=== PATIENT | male | born 1985 | race Caucasian/White ===

== ENCOUNTER 2016-07-03 08:21 | Emergency (ER) | payer OTHER ==
[2016-07-03] MEDS ORDERED: METHOCARBAMOL 1,000 MG/10 ML VIAL (J2800) As Ordered ONE (08:54)
[2016-07-03] MEDS ORDERED: KETOROLAC 30 MG/ML VIAL (J1885) As Ordered ONE (08:54)
--- NOTE | 2016-07-03 09:56 | REP ---
LUMBOSACRAL SPINE: Five views of the lumbosacral spine are performed. There is no compression fracture. There is no spondylolysis or spondylolisthesis. There is partial lumbarization of S1. No disc space narrowing is seen. The posterior elements appear intact. IMPRESSION: No fracture or dislocation. No significant arthritic change. Partial lumbarization of S1 vertebral body. Signed by Sam Marie MD 07/03/2016 03:19 P
--- NOTE | 2016-07-03 10:06 | EDDOCDS ---
Physician Documentation [facility] Name: Fareed Sanchez Age: 30 yrs Sex: Male : 1985 Arrival Date: 07/03/2016 Time: 08:21 Bed PD Private MD: Disposition: 07/03/16 09:34 Discharged to Home/Self Care. Impression: Low back pain. - Condition is Stable. - Discharge Instructions: Back Injury Prevention, Pfvf-[id number], Back Pain, Adult, Mdhb-[id number]. - Prescriptions for Diclofenac Sodium 75 mg Oral Tablet, Delayed Release (E.C.) - take 1 tablet by ORAL route 2 times per day; 30 tablet. Robaxin- 750 750 mg Oral Tablet - take 1 tablet by ORAL route every 6 hours As needed; 40 tablet. - Medication Reconciliation, Local Pharmacy Hours form. - Follow up: [facility]; When: Today; Reason: Further diagnostic work-up, Recheck today's complaints, Continuance of care. - Problem is new. - Symptoms are unchanged. - Notes: YOUR X-RAY FINDINGS IN THE EMERGENCY DEPARTMENT WERE NEGATIVE (NORMAL) FOR ANY FRACTURES OR MALALIGNED BONES/VERTEBRAE. GIVEN THAT YOU HAVE NO NEUROLOGICAL DEFICITS, NO FURTHER IMAGING IS WARRANTED IN THE EMERGENCY DEPARTMENT AT THIS TIME. IT IS RECOMMENDED THAT YOU FOLLOW UP SOON POSSIBLE WITH YOUR PRIMARY SHIPPING AND RECEIVING WEIGHER AT [place] FOR FURTHER MANAGEMENT AND REFERRAL(S) NEEDED. PLEASE BE SURE TO READ AND FOLLOW YOUR DISCHARGE INSTRUCTIONS CAREFULLY. Historical: - Allergies: no known allergies; - Home Meds: 1. Flexeril 10 mg Oral tab every 4 hours (Last dose: 07/02/2016) - PMHx: none; - PSHx: polyp from nose; - Social history: Smoking status: Patient states former smoker of tobacco. No barriers to communication noted, The patient speaks fluent Kyrgyz. - Family history: Not pertinent. - : The pt / caregiver states he / she is not on anticoagulants. Home medication list is obtained from the patient. - Exposure Risk Screening:: None identified. Vital Signs: 07/03 08:27 BP 146 / 84; Pulse 88; Resp 18; Temp 98.4(O); Pulse Ox 97% on R/A; Weight 117.93 kg / kr3 259.99 lbs (R); Height 6 ft. 2 in. (187.96 cm) (R); 10:04 BP 138 / 90; Pulse 85; Resp 18; Temp 97.5(TE); Pulse Ox 96% on R/A; Pain 3/10; dsf 10:05 Pain 3/10; dsf 10:05 Pain 3/10; dsf 08:27 Body Mass Index 33.38 (117.93 kg, 187.96 cm) kr3 MDM: 08:42 ketorolac 60 mg IM once ordered. btw 08:42 Robaxin 250 mg IM once ordered. btw 08:43 Spine. Lumbosacral, Complete Ordered. EDMS 09:07 Financial registration complete. mm15 09:11 [facility] Payment Agreement was scanned into [email or web address] and attached to record. mm15 Administered Medications: 08:58 Drug: Robaxin 250 mg [Robaxin 100 mg/mL injection solution (2.5 mL)] Route: IM; Site: kr3 right gluteus; 10:05 Follow up: Pain 3/10 Adult dsf 08:59 Drug: ketorolac 60 mg [ketorolac 30 mg/mL (1 mL) injection solution (2 mL)] Route: IM; kr3 Site: right deltoid; 10:05 Follow up: Pain 3/10 Adult dsf Signatures: Dispatcher [employer] EDJoselin Enriquez RN RN kr3 Jignesh Mary PA PA btw Fuller, Desiree, RN RN dsf Silverio Telles mm15 The chart was reviewed and I authenticate all verbal orders and agree with the evaluation and treatment provided.Attachments: 09:11 [facility] Payment Agreement mm15 MTDD
--- NOTE | 2016-07-03 10:07 | EDDOCDS ---
Nurse's Notes [facility] Name: Fareed Sanchez Age: 30 yrs Sex: Male : 1985 Arrival Date: 07/03/2016 Time: 08:21 Bed PD Private MD: Diagnosis: Low back pain Presentation: 07/03 08:25 Presenting complaint: Patient states: low back pain began 1 day ago while at the gym. kr3 Reports was lifting something that was not unusual for him, felt a massive pop and muscle spasm. seen at [place] yesterday and given flexeril and toradol IM. Adult Sepsis Screening: The patient does not have new or worsening altered mentation. Patient's respiratory rate is less than 22. Systolic blood pressure is greater than 100. Patient has a qSOFA score of 0- Negative Sepsis Screen. Suicide/Homicide risk assessment- the patient denies having any suicidal and/or homicidal ideations and does not present with any other emotional, behavioral or mental health complaints. 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 Transition of care: patient was not received from another setting of care. 08:25 Acuity: RAUL Level 4 kr3 08:25 Method Of Arrival: Walkin/Carried/Asstd kr3 Triage Assessment: 08:27 General: Appears uncomfortable, Behavior is cooperative. Pain: Location: low back area kr3 Pain currently is 4 out of 10 on a pain scale. At worst was 10 out of 10 on a pain scale. Aggravated by increased activity, repositioning. Pt Declines HIV testing. Neurological: Reports tingling left buttock into toes left foot. Respiratory: Respiratory effort is even, unlabored. Derm: Skin is normal. Historical: - Allergies: no known allergies; - Home Meds: 1. Flexeril 10 mg Oral tab every 4 hours (Last dose: 07/02/2016) - PMHx: none; - PSHx: polyp from nose; - Social history: Smoking status: Patient states former smoker of tobacco. No barriers to communication noted, The patient speaks fluent Thai. - Family history: Not pertinent. - : The pt / caregiver states he / she is not on anticoagulants. Home medication list is obtained from the patient. - Exposure Risk Screening:: None identified. Screenin:04 Screening information is obtained from the patient. Fall risk: No risks identified. dsf Assistance ADL's: requires no assistance with activities of daily living. Abuse/DV Screen: The patient / caregiver reports he/she is: not in a situation that causes fear, pain or injury. Nutritional screening: No deficits noted. Advance Directives: Currently, there is no health care proxy. home support is adequate. Assessment: 10:04 Adult Sepsis Screening: The patient does not have new or worsening altered mentation. dsf Patient's respiratory rate is less than 22. Systolic blood pressure is greater than 100. Patient has a qSOFA score of 0- Negative Sepsis Screen. General: Appears in no apparent distress, Behavior is appropriate for age, cooperative. Pain: Pain currently is 3 out of 10 on a pain scale. Neurological: Level of Consciousness is awake, alert. Cardiovascular: No deficits noted. Respiratory: No deficits noted. Derm: Skin is pink, warm & dry. Vital Signs: 08:27 BP 146 / 84; Pulse 88; Resp 18; Temp 98.4(O); Pulse Ox 97% on R/A; Weight 117.93 kg kr3 (R); Height 6 ft. 2 in. (187.96 cm) (R); 10:04 BP 138 / 90; Pulse 85; Resp 18; Temp 97.5(TE); Pulse Ox 96% on R/A; Pain 3/10; dsf 10:05 Pain 3/10; dsf 10:05 Pain 3/10; dsf 08:27 Body Mass Index 33.38 (117.93 kg, 187.96 cm) kr3 Vitals: 08:27 Log In Time: July 03, 2016 at 08:21. kr3 ED Course: 08:22 Patient visited by Jose Bond Reg. pm4 08:22 Patient moved to Waiting pm4 08:24 Patient moved to Triage 2 kr3 08:26 Jignesh Mary PA is PHCP. btw 08:26 Jennifer Ashby MD is Attending Physician. btw 08:26 Triage Initiated kr3 08:27 Patient visited by Jignesh Mary PA. btw 08:58 Patient visited by Joselin Roque RN. kr3 08:59 Patient moved to TR2 kr3 09:11 [facility] Payment Agreement was scanned into [employer] and attached to record. mm15 09:34 Kenyatta Nunez [facility] is Referral Physician. btw 10:01 Patient moved to PD dsf 10:05 No IV's were initiated during this patient's visit. No procedures done that require dsf assistance. 10:06 The patient / caregiver is instructed regarding the plan of care and ED course. dsf Administered Medications: 08:58 Drug: Robaxin 250 mg [Robaxin 100 mg/mL injection solution (2.5 mL)] Route: IM; Site: kr3 right gluteus; 10:05 Follow up: Pain 09/05 Adult dsf 08:59 Drug: ketorolac 60 mg [ketorolac 30 mg/mL (1 mL) injection solution (2 mL)] Route: IM; kr3 Site: right deltoid; 10:05 Follow up: Pain 09/05 Adult dsf Order Results: There are currently no results for this order. Outcome: 09:34 Discharge ordered by Provider. btw 10:05 Discharge Assessment: Patient awake, alert and oriented x 3. No cognitive and/or dsf functional deficits noted. Patient verbalized understanding of disposition instructions. patient administered narcotics - yes. Pt provided with safe discharge. The following High Risk Discharge criteria are identified: None. Discharged to home ambulatory. Condition: stable. Discharge instructions given to patient, Instructed on discharge instructions, follow up and referral plans. medication usage, no driving heavy equipment, Demonstrated understanding of instructions, medications, Pt was receptive of discharge instructions/ teaching. Prescriptions given X 2. No special radiology studies were completed. Property sent home with patient. 10:06 Patient left the ED. dsf Signatures: Joselin Roque RN RN kr3 Jignesh Mary PA PA btw Fuller, Desiree, RN RN dsf Silverio Telles mm15 Jose Bond, Reg Reg pm4 Corrections: (The following items were deleted from the chart) 08:28 08:25 Presenting complaint: Patient states: low back pain began 1 day ago while at the kr[employer] gym. Reports was lifting something that was not unusual for him, felt a massive pop and muscle spasm. kr3 MTDD
--- NOTE | 2016-07-05 11:07 | EDDOCDS ---
Physician Documentation [facility] Name: Fareed Sanchez Age: 30 yrs Sex: Male : 1985 Arrival Date: 07/03/2016 Time: 08:21 Bed PD Private MD: Disposition: 07/03/16 09:34 Discharged to Home/Self Care. Impression: Low back pain. - Condition is Stable. - Discharge Instructions: Back Injury Prevention, Edkg-he-Bikn, Back Pain, Adult, Orck-kz-[id number]. - Prescriptions for Diclofenac Sodium 75 mg Oral Tablet, Delayed Release (E.C.) - take 1 tablet by ORAL route 2 times per day; 30 tablet. Robaxin- 750 750 mg Oral Tablet - take 1 tablet by ORAL route every 6 hours As needed; 40 tablet. - Medication Reconciliation, Local Pharmacy Hours form. - Follow up: [facility]; When: Today; Reason: Further diagnostic work-up, Recheck today's complaints, Continuance of care. - Problem is new. - Symptoms are unchanged. - Notes: YOUR X-RAY FINDINGS IN THE EMERGENCY DEPARTMENT WERE NEGATIVE (NORMAL) FOR ANY FRACTURES OR MALALIGNED BONES/VERTEBRAE. GIVEN THAT YOU HAVE NO NEUROLOGICAL DEFICITS, NO FURTHER IMAGING IS WARRANTED IN THE EMERGENCY DEPARTMENT AT THIS TIME. IT IS RECOMMENDED THAT YOU FOLLOW UP SOON POSSIBLE WITH YOUR PRIMARY RN NAVIGATOR AT [place] FOR FURTHER MANAGEMENT AND REFERRAL(S) NEEDED. PLEASE BE SURE TO READ AND FOLLOW YOUR DISCHARGE INSTRUCTIONS CAREFULLY. Historical: - Allergies: no known allergies; - Home Meds: 1. Flexeril 10 mg Oral tab every 4 hours (Last dose: 07/02/2016) - PMHx: none; - PSHx: polyp from nose; - Social history: Smoking status: Patient states former smoker of tobacco. No barriers to communication noted, The patient speaks fluent [place] Islander. - Family history: Not pertinent. - : The pt / caregiver states he / she is not on anticoagulants. Home medication list is obtained from the patient. - Exposure Risk Screening:: None identified. Vital Signs: 07/03 08:27 BP 146 / 84; Pulse 88; Resp 18; Temp 98.4(O); Pulse Ox 97% on R/A; Weight 117.93 kg / kr3 259.99 lbs (R); Height 6 ft. 2 in. (187.96 cm) (R); 10:04 BP 138 / 90; Pulse 85; Resp 18; Temp 97.5(TE); Pulse Ox 96% on R/A; Pain 3/10; dsf 10:05 Pain 3/10; dsf 10:05 Pain 3/10; dsf 08:27 Body Mass Index 33.38 (117.93 kg, 187.96 cm) kr3 MDM: 08:42 ketorolac 60 mg IM once ordered. btw 08:42 Robaxin 250 mg IM once ordered. btw 08:43 Spine. Lumbosacral, Complete Ordered. EDMS 09:07 Financial registration complete. mm15 09:11 [facility] Payment Agreement was scanned into [employer] and attached to record. mm15 07/04 07:45 T-Sheet-- Draft Copy was scanned into [employer] and attached to record. gb Administered Medications: 07/03 08:58 Drug: Robaxin 250 mg [Robaxin 100 mg/mL injection solution (2.5 mL)] Route: IM; Site: kr3 right gluteus; 10:05 Follow up: Pain 3/10 Adult dsf 08:59 Drug: ketorolac 60 mg [ketorolac 30 mg/mL (1 mL) injection solution (2 mL)] Route: IM; kr3 Site: right deltoid; 10:05 Follow up: Pain 3/10 Adult dsf Signatures: Dispatcher MedHost EDND Maura Herring Reg Reg gb Robie, Kathleen, RN RN kr3 Jignesh Mary PA PA btCaryn Rosado RN RN dsf Silverio Telles mm15 The chart was reviewed and I authenticate all verbal orders and agree with the evaluation and treatment provided.Attachments: 09:11 [facility] Payment Agreement mm15 07/04 07:45 T-Sheet-- Draft Copy gb Chart Complete MTDD
--- NOTE | 2016-07-05 11:07 | EDDOCDS ---
Physician Documentation [facility] Name: Fareed Sanchez Age: 30 yrs Sex: Male : 1985 Arrival Date: 07/03/2016 Time: 08:21 Bed PD Private MD: Disposition: 07/03/16 09:34 Discharged to Home/Self Care. Impression: Low back pain. - Condition is Stable. - Discharge Instructions: Back Injury Prevention, Ljad-qc-Bdel, Back Pain, Adult, Ykba-uq-Tauq. - Prescriptions for Diclofenac Sodium 75 mg Oral Tablet, Delayed Release (E.C.) - take 1 tablet by ORAL route 2 times per day; 30 tablet. Robaxin- 750 750 mg Oral Tablet - take 1 tablet by ORAL route every 6 hours As needed; 40 tablet. - Medication Reconciliation, Local Pharmacy Hours form. - Follow up: [facility]; When: Today; Reason: Further diagnostic work-up, Recheck today's complaints, Continuance of care. - Problem is new. - Symptoms are unchanged. - Notes: YOUR X-RAY FINDINGS IN THE EMERGENCY DEPARTMENT WERE NEGATIVE (NORMAL) FOR ANY FRACTURES OR MALALIGNED BONES/VERTEBRAE. GIVEN THAT YOU HAVE NO NEUROLOGICAL DEFICITS, NO FURTHER IMAGING IS WARRANTED IN THE EMERGENCY DEPARTMENT AT THIS TIME. IT IS RECOMMENDED THAT YOU FOLLOW UP SOON POSSIBLE WITH YOUR PRIMARY HORSE RIDING COACH OR INSTRUCTOR AT [place] FOR FURTHER MANAGEMENT AND REFERRAL(S) NEEDED. PLEASE BE SURE TO READ AND FOLLOW YOUR DISCHARGE INSTRUCTIONS CAREFULLY. Historical: - Allergies: no known allergies; - Home Meds: 1. Flexeril 10 mg Oral tab every 4 hours (Last dose: 07/02/2016) - PMHx: none; - PSHx: polyp from nose; - Social history: Smoking status: Patient states former smoker of tobacco. No barriers to communication noted, The patient speaks fluent Iranian. - Family history: Not pertinent. - : The pt / caregiver states he / she is not on anticoagulants. Home medication list is obtained from the patient. - Exposure Risk Screening:: None identified. Vital Signs: 07/03 08:27 BP 146 / 84; Pulse 88; Resp 18; Temp 98.4(O); Pulse Ox 97% on R/A; Weight 117.93 kg / kr3 259.99 lbs (R); Height 6 ft. 2 in. (187.96 cm) (R); 10:04 BP 138 / 90; Pulse 85; Resp 18; Temp 97.5(TE); Pulse Ox 96% on R/A; Pain 3/10; dsf 10:05 Pain 3/10; dsf 10:05 Pain 3/10; dsf 08:27 Body Mass Index 33.38 (117.93 kg, 187.96 cm) kr3 MDM: 08:42 ketorolac 60 mg IM once ordered. btw 08:42 Robaxin 250 mg IM once ordered. btw 08:43 Spine. Lumbosacral, Complete Ordered. EDMS 09:07 Financial registration complete. mm15 09:11 REPLACED BY [facility] Payment Agreement was scanned into [employer] and attached to record. mm15 07/04 07:45 T-Sheet-- Draft Copy was scanned into [employer] and attached to record. gb Administered Medications: 07/03 08:58 Drug: Robaxin 250 mg [Robaxin 100 mg/mL injection solution (2.5 mL)] Route: IM; Site: kr3 right gluteus; 10:05 Follow up: Pain 3/10 Adult dsf 08:59 Drug: ketorolac 60 mg [ketorolac 30 mg/mL (1 mL) injection solution (2 mL)] Route: IM; kr3 Site: right deltoid; 10:05 Follow up: Pain 3/10 Adult dsf Signatures: Dispatcher MedHost EDNJ Maura Herring Reg Reg gb Robie, Kathleen, RN RN kr3 Jignesh Mary PA PA btCaryn Rosado RN RN dsf Silverio Telles mm15 The chart was reviewed and I authenticate all verbal orders and agree with the evaluation and treatment provided.Attachments: 09:11 REPLACED BY [facility] Payment Agreement mm15 07/04 07:45 T-Sheet-- Draft Copy gb Chart Complete MTDD
--- NOTE | 2016-07-05 11:07 | EDDOCDS ---
Nurse's Notes [facility] Name: Fareed Sanchez Age: 30 yrs Sex: Male : 1985 Arrival Date: 07/03/2016 Time: 08:21 Bed PD Private MD: Diagnosis: Low back pain Presentation: 07/03 08:25 Presenting complaint: Patient states: low back pain began 1 day ago while at the gym. kr3 Reports was lifting something that was not unusual for him, felt a massive pop and muscle spasm. seen at [place] yesterday and given flexeril and toradol IM. Adult Sepsis Screening: The patient does not have new or worsening altered mentation. Patient's respiratory rate is less than 22. Systolic blood pressure is greater than 100. Patient has a qSOFA score of 0- Negative Sepsis Screen. Suicide/Homicide risk assessment- the patient denies having any suicidal and/or homicidal ideations and does not present with any other emotional, behavioral or mental health complaints. Status: The patient is an active duty manager creative services. Transition of care: patient was not received from another setting of care. 08:25 Acuity: RAUL Level 4 kr3 08:25 Method Of Arrival: Walkin/Carried/Asstd kr3 Triage Assessment: 08:27 General: Appears uncomfortable, Behavior is cooperative. Pain: Location: low back area kr3 Pain currently is 4 out of 10 on a pain scale. At worst was 10 out of 10 on a pain scale. Aggravated by increased activity, repositioning. Pt Declines HIV testing. Neurological: Reports tingling left buttock into toes left foot. Respiratory: Respiratory effort is even, unlabored. Derm: Skin is normal. Historical: - Allergies: no known allergies; - Home Meds: 1. Flexeril 10 mg Oral tab every 4 hours (Last dose: 07/02/2016) - PMHx: none; - PSHx: polyp from nose; - Social history: Smoking status: Patient states former smoker of tobacco. No barriers to communication noted, The patient speaks fluent Yi. - Family history: Not pertinent. - : The pt / caregiver states he / she is not on anticoagulants. Home medication list is obtained from the patient. - Exposure Risk Screening:: None identified. Screenin:04 Screening information is obtained from the patient. Fall risk: No risks identified. dsf Assistance ADL's: requires no assistance with activities of daily living. Abuse/DV Screen: The patient / caregiver reports he/she is: not in a situation that causes fear, pain or injury. Nutritional screening: No deficits noted. Advance Directives: Currently, there is no health care proxy. home support is adequate. Assessment: 10:04 Adult Sepsis Screening: The patient does not have new or worsening altered mentation. dsf Patient's respiratory rate is less than 22. Systolic blood pressure is greater than 100. Patient has a qSOFA score of 0- Negative Sepsis Screen. General: Appears in no apparent distress, Behavior is appropriate for age, cooperative. Pain: Pain currently is 3 out of 10 on a pain scale. Neurological: Level of Consciousness is awake, alert. Cardiovascular: No deficits noted. Respiratory: No deficits noted. Derm: Skin is pink, warm & dry. Vital Signs: 08:27 BP 146 / 84; Pulse 88; Resp 18; Temp 98.4(O); Pulse Ox 97% on R/A; Weight 117.93 kg kr3 (R); Height 6 ft. 2 in. (187.96 cm) (R); 10:04 BP 138 / 90; Pulse 85; Resp 18; Temp 97.5(TE); Pulse Ox 96% on R/A; Pain 3/10; dsf 10:05 Pain 3/10; dsf 10:05 Pain 3/10; dsf 08:27 Body Mass Index 33.38 (117.93 kg, 187.96 cm) kr3 Vitals: 08:27 Log In Time: July 03, 2016 at 08:21. kr3 ED Course: 08:22 Patient visited by Jose Bond Reg. pm4 08:22 Patient moved to Waiting pm4 08:24 Patient moved to Triage 2 kr3 08:26 Jignesh Mary PA is PHCP. btw 08:26 Jennifer Ashby MD is Attending Physician. btw 08:26 Triage Initiated kr3 08:27 Patient visited by Jignesh Mary PA. btw 08:58 Patient visited by Joselin Roque RN. kr3 08:59 Patient moved to TR2 kr3 09:11 [facility] Payment Agreement was scanned into [employer] and attached to record. mm15 09:34 Kenyatta Nunez [facility] is Referral Physician. btw 10:01 Patient moved to PD2 dsf 10:05 No IV's were initiated during this patient's visit. No procedures done that require dsf assistance. 10:06 The patient / caregiver is instructed regarding the plan of care and ED course. dsf 10:28 Spine. Lumbosacral, Complete Returned. EDMS 07/04 07:45 T-Sheet-- Draft Copy was scanned into [employer] and attached to record. gb Administered Medications: 07/03 08:58 Drug: Robaxin 250 mg [Robaxin 100 mg/mL injection solution (2.5 mL)] Route: IM; Site: kr3 right gluteus; 10:05 Follow up: Pain 09/05 Adult dsf 08:59 Drug: ketorolac 60 mg [ketorolac 30 mg/mL (1 mL) injection solution (2 mL)] Route: IM; kr3 Site: right deltoid; 10:05 Follow up: Pain 09/05 Adult dsf Order Results: Radiology Order: Spine. Lumbosacral, Complete Test: Spine. Lumbosacral, Complete REASON FOR EXAMINATION: Low back pain; LUMBOSACRAL SPINE:; ; Five views of the lumbosacral spine are performed.; ; There is no compression fracture. There is no spondylolysis or spondylolisthesis.; There is partial lumbarization of S1. No disc space narrowing is seen. The; posterior elements appear intact.; ; IMPRESSION:; ; No fracture or dislocation. No significant arthritic change. Partial; lumbarization of S1 vertebral body.; ; ; Signed by; Sam Marie MD 07/03/2016 03:19 P; Outcome: 09:34 Discharge ordered by Provider. btw 10:05 Discharge Assessment: Patient awake, alert and oriented x 3. No cognitive and/or dsf functional deficits noted. Patient verbalized understanding of disposition instructions. patient administered narcotics - yes. Pt provided with safe discharge. The following High Risk Discharge criteria are identified: None. Discharged to home ambulatory. Condition: stable. Discharge instructions given to patient, Instructed on discharge instructions, follow up and referral plans. medication usage, no driving heavy equipment, Demonstrated understanding of instructions, medications, Pt was receptive of discharge instructions/ teaching. Prescriptions given X 2. No special radiology studies were completed. Property sent home with patient. 10:06 Patient left the ED. dsf Signatures: Dispatcher MedHost EDMS Maura Herring, Reg Reg gb Joselin Roque,RN RN kr3 Jignesh Mary PA PA btw Fuller, Desiree, RN RN dsf Silverio Telles mm15 Jose Bond, Reg Reg pm4 Corrections: (The following items were deleted from the chart) 08:28 08:25 Presenting complaint: Patient states: low back pain began 1 day ago while at the kr3 gym. Reports was lifting something that was not unusual for him, felt a massive pop and muscle spasm. kr3 Chart Complete MTDD
== END 2016-07-03 10:06 | disposition home or self-care (01) ==
LOC: M ED 08:21
DX: S33.5XXA Sprain of ligaments of lumbar spine, initial encounter (principal); X58.XXXA Exposure to other specified factors, initial encounter; Y92.39 Other specified sports and athletic area as the place of occurrence of the external cause; Y93.B3 Activity, free weights; Y99.8 Other external cause status; Z87.891 Personal history of nicotine dependence; Z79.899 Other long term (current) drug therapy
CPT/HCPCS: 72110; 96372; 99283; J1885; J2800

== ENCOUNTER → 2018-01-14 16:27 | Emergency (ER) | payer OTHER | END | disposition left against medical advice (07) | LOC: M ED 16:27 | DX: Z53.29 Procedure and treatment not carried out because of patient's decision for other reasons (principal) ==